=== PATIENT | male | born 1950 ===

== ENCOUNTER 2018-11-08 20:28 | Emergency (ER) | payer BC, MEDICARE ==
--- NOTE | 2018-11-08 20:37 | UC ---
Laceration HPI - HPI Summary HPI Summary: Pt is a RHD male with a h/o Parkinson's disease. Pt was cutting weeds with a machete approx 4 hours [employer]. Pt sustained laceration to left thumb. Pt washed with water, covered with antibiotic ointment and bandage. Pt came to because continues to bleed. Tetanus 1-2 years old. Pt reports tingling in finger Not immunocompromised. little discomfort pt's medications reviewed this visit - History Of Current Complaint Stated Complaint: LEFT THUMB LAC Time Seen by Provider: 11/08/18 20:31 Hx Obtained From: Patient, Family/[employer] Dispatcher Mechanism Of Injury: Sharp Trauma Severity: Mild Pain Intensity: 2 Pain Scale Used: 0-10 Numeric Aggravating Factors: Movement - Allergies/Home Medications Allergies/Adverse Reactions: Allergies Allergy/AdvReac Type Severity Reaction Status Date / Time NSAIDS (Non-Steroidal Allergy Bleeding Verified 11/08/18 20:42 Anti-Inflamma Home Medications: Home Medications Carbidopa/Levodop 25/100 MG(*) [Sinemet 25/100 TAB(*)] 1 tab PO QID 11/08/18 [ History Confirmed 11/08/18] Carbidopa/Levodop ER 25/100 MG [Carbidopa-Levo ER 25-100 Tab] 1 each BID [History Confirmed 11/08/18] Fluoxetine (Nf) Cap [Fluoxetine HCl] 40 mg 11/08/18 [History] oxyCODONE/Acetam5/325MG PREPAK [Percocet 5/325 TAB*] 2 tab PRN 11/08/18 [History ] traZODone TAB* [Desyrel TAB*] 100 mg PO BEDTIME 11/08/18 [History Confirmed ] PMH/Surg Hx/FS Hx/Imm Hx Previously Healthy: Yes - parkinson's Cardiovascular History: Hypertension Other Neurological History: parkinson's - Surgical History Surgical History: Yes Surgery Procedure, Year, and Place: MAYELA CARPAL TUNNEL. REATTACH A FINGER - Lt MIDDLE FINGER. CATARACT - Family History Known Family History: Positive: Non-Contributory - Social History Occupation: Retired Lives: With Family Alcohol Use: None Substance Use Type: None Have You Smoked in the Last Year: No Review of Systems All Other Systems Reviewed And Are Negative: Yes Constitutional: Positive: Negative Skin: Positive: Other - lacerato Musculoskeletal: Positive: Other: - thumb laceration Neurological: Positive: Other - paresthesia Physical Exam - Summary Physical Exam Summary: Vital Signs Reviewed: Yes A+Ox3, no distress Eyes: Conjunctiva Clear ENT: Hearing grossly normal neck: supple Respiratory: Positive: No respiratory distress, No accessory muscle use Cardiovascular: skin color reflect adequate perfusion, CBT < 2 sec distal fner and along finger Musculoskeletal Exam: + flex/ext MCP, IP against resistance - slight weakness with full extension IP but able, + abduct, adduct, opponens Neurological: Positive: Alert, ambulatory without difficulty + gross sensation throughout finger with slight decrease midline distal phalynx, dorsum Psychological: Positive: Normal Response To Family Skin: Positive: no rash, no ecchymosis. 1.5cm laceration just proximal to IP joint, left thumb, dorsum oozing Triage Information Reviewed: Yes Laceration Repair - Laceration Repair 1 Procedure Summary: verbal permission to treat time out completed with RN at bedside pt prepped in usual, sterile fashion copious irrigation with 250ml sterile saline under pressure wound evaluated through full ROM -no tendon injury visualized Place 4 sutures - simple interrupted with good approximation pt tolerated well bandage, splint ortho/hand f/u reviewed with pt wound care s/s infection return precautions Description: Linear Laceration Size After Repair: Length (cm) - 1.5 Modified For Repair: No Type Injection: Local Anesthesia Used: 1.0% Lido Cleansing Completed Via Routine Prep: Yes Irrigation With Pressure Irrigation Device: No Closure Material: Sutures - 4-0 Prolene Closure Method: Single Layer - 4 Suture Of: Skin Suture Type: Prolene Laceration Course/Dx - Course/Dx Course Of Treatment: Pt presents with laceration to left thumb occuring 4 hours ago. Pt LHD. no anticoagulation, tetanus utd VSS Pt with slight decreased sensation midline distal phalynx pt with slight decrease strength with full extension of DIP LAceration repair no noted tendon injury under direct visualization d/w pt and wound care, splint Abx Pt has percocet return precaution f/u with ortho / hand understanding and agreement with plan - Diagnosis Provider Diagnosis: Laceration of left thumb Discharge - Sign-Out/Discharge Documenting (check all that apply): Patient Departure All imaging exams completed and their final reports reviewed: No Studies - Discharge Plan Condition: Stable Disposition: HOME Prescriptions: Cephalexin CAP* [Keflex 500 CAP*] 500 mg PO BID #14 cap Patient Education Materials: Finger Laceration (ED) Referrals: John Melo MD [Primary Care Provider] - Vahid June MD [Medical Doctor] - Leonides Rojo MD [Medical Doctor] - Additional Instructions: - keep bandage on your wound until Saturday - if you are able to schedule an orthopedic appointment on Saturday, leave the bandage on until the appointment. Otherwise - remove your bandage on Saturday, wash with warm soapy water, pat dry. Cover with a thin layer of antibiotic ointment (polysporin, neosporin) and bandage. Then apply a thin layer of antibiotic ointment (neosporin, polysporin) 2-3 times a day. Keep splint on your thumb until instructed otherwise by the hand specialist - - okay to take Tylenol every 6 hours as needed for pain. -Anticipate increased discomfort over the next several hours as the numbing medication wears off -Keep your wound clean and dry - no soaking for 24 hours. Then, okay for wound to get wet - pat dry, don't rub - take antibiotics as prescribed until gone - keep your wound clean - monitor for signs of infection - reddness, red streaking, odor, green drainage - As discussed - the provider that placed your stitches today did not see an injury your tendon - it is recommended you follow-up with the orthopedic hand specialist - call on Saturday to the number provider to schedule an appointment. - Billing Disposition and Condition Condition: STABLE Disposition: Home
[2018-11-08 20:41] VITALS: BP 131/76
[2018-11-08] MEDS ORDERED: Lidocaine 1% MPF ** 5 ML VIAL INJ ONE (20:52)
[2018-11-08] MEDS ORDERED: Cephalexin CAP* 500 MG PO ONE (21:15)
== END 2018-11-08 21:22 | disposition home or self-care (01) ==
LOC: UCEAST 20:28
DX: S61.012A Laceration without foreign body of left thumb without damage to nail, initial encounter (principal); W26.0XXA Contact with knife, initial encounter; Y93.H2 Activity, gardening and landscaping; Y92.017 Garden or yard in single-family (private) house as the place of occurrence of the external cause; Y99.8 Other external cause status; I10 Essential (primary) hypertension; G20 Parkinson's disease
CPT/HCPCS: 12001; 99212; A9270-GY; G0463

== ENCOUNTER 2018-11-17 11:50 | Day surgery (SDC) | payer BC, MEDICARE ==
[~2018-11-17 11:50] MED LIST: Buffered Lidocaine 1% SYRIN* 1 ML/SYRINGE INTRADERM ONE; Bupivacaine 0.25% SDV PF* 10 ML VIAL INJ ONE; Dexamethasone IV* 4 MG/ML 1 ML (4 MG) ONE; Famotidine IV* 10 MG/ML 2 ML (20 mg) IV ONE; Ketorolac INJ* 30 MG/ML 1 ML VIAL ONE; Lactated Ringers 1000 ML Bag* 1,000 ML IV SCH; Lidocaine 2% PF * 5 ML VIAL ONE; Midazolam* 1 MG/ML 5 ML VIAL (5 MG) ONE; Ondansetron INJ* 2 MG/ML VIAL ONE; Propofol* 10 MG/ML 20 ML BTL ONE; fentaNYL* 50 MCG/ML 2 ML VIAL (100 MCG VIAL) ONE
[2018-11-17] MEDS ORDERED: Buffered Lidocaine 1% SYRIN* 1 ML/SYRINGE INTRADERM ONE (12:06)
[2018-11-17] MEDS ORDERED: ceFAZolin 2 GM in NS PREMIX(*) 2 GM/100 ML BAG IVPB ONE (12:06)
[2018-11-17] MEDS ORDERED: Famotidine IV* 10 MG/ML 2 ML (20 mg) ONE (12:06)
[2018-11-17] MEDS ORDERED: Ondansetron INJ* 2 MG/ML VIAL IV PRN (13:16)
[2018-11-17] MEDS ORDERED: fentaNYL* 50 MCG/ML 2 ML VIAL (100 MCG VIAL) IV PRN (13:16)
[2018-11-17] MEDS ORDERED: Naloxone* 0.4 MG/ML 1 ML VIAL IV PRN (13:16)
[2018-11-17 14:30] VITALS: BP 152/93
--- NOTE | 2018-11-17 20:23 | OP ---
DATE OF OPERATION: 11/17/18 - [facility] DATE OF : 52 SURGEON: Vahid June MD. STUDY DIRECTOR: DAVID Huang. ANESTHESIOLOGIST: Dr. Amor. ANESTHESIA: Local MAC. PRE-OP DIAGNOSIS: Left thumb extensor tendon laceration over the proximal phalanx. POST-OP DIAGNOSIS: Left thumb extensor tendon laceration over the proximal phalanx. OPERATIVE PROCEDURE: Repair of left thumb extensive extensor tendon over the proximal phalanx. INDICATIONS: Sae has the laceration of the extensor tendon. We talked about risks and benefits. He wanted to have it repaired. ESTIMATED BLOOD LOSS: 2 mL. COMPLICATIONS: None. FINDINGS: See above and below. DESCRIPTION OF PROCEDURE: Sae was seen in the preoperative holding area. The correct side, site, and procedure were identified. He came back to the operating room. The arm was prepped and draped in the usual fashion. Time-out was performed. I extended the traumatic margin proximally and distally at the edges of the wound to create a lazy S-type incision. Full-thickness flaps were raised off the paratenon. The laceration was noted. There was about a 1 cm gap between the two edges of tendon. The miami blade was used to clean up the scar tissue between the two edges of tendon. I then used a 3-[address] a couple of [id number] stitches with grasping sutures to reapproximate the edges of the tendon. I then backed this up with a 4-0 PDS Silfverskiold suture. Once I had completed that, everything was looking very good. I flexed and extended the thumb IP joint. There was no gapping. It was very solidly repaired. The wound was irrigated out. Skin was closed with 4-0 nylon suture. He was splinted in a thumb spica splint and taken to recovery room in stable condition. [id number]/[facility] #: [id number] [facility] HOSPITALKalyan
== END 2018-11-17 14:32 | disposition home or self-care (01) ==
LOC: OR 11:50
PROVIDERS: ATTEND Orthopaedic Surgery Hand Surgery
DX: S66.222A Laceration of extensor muscle, fascia and tendon of left thumb at wrist and hand level, initial encounter (principal); W26.0XXA Contact with knife, initial encounter; Y92.9 Unspecified place or not applicable; E78.5 Hyperlipidemia, unspecified; M19.90 Unspecified osteoarthritis, unspecified site; G20 Parkinson's disease; G47.33 Obstructive sleep apnea (adult) (pediatric); K73.9 Chronic hepatitis, unspecified
CPT/HCPCS: J0690; J1100; J1885; J2250; J2405; J2704; J3010; J3490